=== PATIENT | female | born 1965 | race Caucasian/White ===

== ENCOUNTER 2017-08-17 08:59 | Day surgery (SDC) | payer BC ==
[2017-08-17] MEDS: BUPIVACAINE 0.5% 30 ML VIAL INJ
[2017-08-17] MEDS: LIDOCAINE 1% (MPF) 30 ML INJ INJ
[~2017-08-17 08:59] MED LIST: CEFAZOLIN 2 GM/50 ML (PMX) 50 ML IVPB; SOD CHLORIDE 0.9% 1,000 ML IV
[2017-08-17] MEDS ORDERED: BUPIVACAINE 0.25% (MPF) 30 ML INJ (11:26)
[2017-08-17] MEDS ORDERED: hydrALAzine 20 MG INJ IV (11:30)
[2017-08-17] MEDS ORDERED: MEPERIDINE 25 MG INJ IV (11:30)
[2017-08-17] MEDS ORDERED: ONDANSETRON 4 MG INJ IV (11:30)
[2017-08-17] MEDS ORDERED: DIPHENHYDRAMINE 50 MG INJ IV (11:30)
[2017-08-17] MEDS ORDERED: LABETALOL HCL 20MG INJ IV (11:30)
[2017-08-17] MEDS ORDERED: PROCHLORPERAZINE 10 MG INJ IV (11:30)
[2017-08-17] MEDS ORDERED: HYDROmorphONE (0.2 MG/ML) 10ML SYG IV (11:30)
[2017-08-17] MEDS ORDERED: FENTAnyl 50 MCG/ML VIAL IV (11:30)
[2017-08-17] MEDS ORDERED: INSULIN ASPART [NOVOLOG] 3 ML PEN SC (11:30)
[2017-08-17] MEDS ORDERED: PROPOFOL 20 ML (11:41)
[2017-08-17] MEDS ORDERED: LIDOCAINE 2% (SDV) 5 ML INJ (11:41)
[2017-08-17] MEDS ORDERED: MIDAZOLAM 1 MG/ML 2 ML INJ (11:41)
[2017-08-17] MEDS ORDERED: FENTAnyl 50 MCG/ML VIAL (11:41)
[2017-08-17] MEDS ORDERED: LIDOCAINE 1% (MPF) 30 ML INJ (11:42)
[2017-08-17] MEDS ORDERED: BUPIVACAINE 0.5% (SDV) 30 ML INJ (11:42)
[2017-08-17] MEDS ORDERED: CEFAZOLIN 1 GM INJ (11:45)
[2017-08-17] MEDS ORDERED: ONDANSETRON 4 MG INJ (11:50)
[2017-08-17] MEDS ORDERED: FAMOTIDINE 20 MG INJ (11:51)
[2017-08-17] MEDS ORDERED: IBUPROFEN 800 MG TAB PO (12:30)
[2017-08-17] MEDS: OXYCODONE/ACETAMINOPHEN (5/325) TAB PO (13:28)
== END 2017-08-17 14:00 | disposition home or self-care (01) ==
LOC: SDS 08:59
DX: D17.21 Benign lipomatous neoplasm of skin and subcutaneous tissue of right arm (principal); I10 Essential (primary) hypertension; E11.9 Type 2 diabetes mellitus without complications; E78.5 Hyperlipidemia, unspecified; Z87.891 Personal history of nicotine dependence
CPT/HCPCS: 14020; 82962; 84703; 88307